=== PATIENT | female | born 1980 | race Two or more races ===

== ENCOUNTER 2018-07-26 11:06 | Inpatient (IN) | payer OTHER ==
[2018-07-26 11:47] LABS: BILIRUBIN,URINE MODERATE (NEG); CLARITY,URINE CLEAR; NITRITE,URINE NEGATIVE (NEG); PROTEIN,URINE 30 mg/dL (NEG-TRACE)
[2018-07-26 11:58] LABS: COLOR,URINE YELLOW
[2018-07-26 11:59] LABS: BACTERIA,URINE MANY /HPF (0-FEW); SQUAMOUS EPITHELIAL CELL,UR MANY /LPF
[2018-07-26 12:01] LABS: RBC,URINE OCC /HPF (0-2)
[2018-07-26] MEDS: IV RINGERS,LACTATED 1000ML 1,000 ML IV SCH ×2 (12:38→17:56)
[2018-07-26 12:48] LABS: BASO % 0 % (0-3); EOS # 0.1 x10^3/uL (0.0-0.7); EOS % 1 % (0-3); HEMATOCRIT 36.9 % (36.0-47.0); HEMOGLOBIN 13.2 g/dL (12.0-15.5); LYMPH # 0.9 x10^3/uL (1.0-4.8); LYMPH % 9 % (24-48); MEAN CORPUSCULAR HEMOGLOBIN 33 pg (25-35); MEAN CORPUSCULAR HGB CONC 36 g/dL (31-37); MEAN CORPUSCULAR VOLUME 93 fL (79-100); MONO # 0.6 x10^3/uL (0.0-1.1); MONO % 6 % (0-9); NEUT # 8.4 x10^3uL (1.8-7.7); NEUT % 84 % (31-73); PLATELET COUNT 349 x10^3/uL (140-400); RED BLOOD COUNT 3.97 x10^6/uL (3.50-5.40); RED CELL DISTRIBUTION WIDTH 13.1 % (11.5-14.5)
[2018-07-26 12:58] LABS: CREATININE 0.6 mg/dL (0.6-1.0); GFR 111.3; POTASSIUM 3.8 mmol/L (3.5-5.1)
[2018-07-26 13:04] LABS: ALBUMIN 2.6 g/dL (3.4-5.0); ALBUMIN/GLOBULIN RATIO 0.6 (1.0-1.7); TOTAL BILIRUBIN 1.2 mg/dL (0.2-1.0)
[2018-07-26] MEDS: HYDROcodone/APAP 5/325MG 1 TAB TABLET PO PRN ×2 (13:48→20:01)
--- NOTE | 2018-07-26 14:48 | RAD ---
OB ultrasound study greater than 14 weeks Clinical indications: Large for dates. FINDINGS: Single intrauterine fetus is seen in cephalic presentation. LMP is December 14, 2017 which corresponds to a gestational age of 32 weeks 0 days with an EDC of September 20, 2018. BPD is 8.22 cm which equals 33 weeks 0 days. Head circumference is 30.22 cm which equals 33 weeks 4 days. Abdominal circumference is 28.60 cm which equals 32 weeks 4 days. Femur length is 6.64 cm which equals 34 weeks 1 day. Therefore, the average gestational age by sonography is 33 weeks 2 days +/- 3 weeks with an EDC of September 11, 2018. Estimated weight is 4 pounds and 12 ounces. heart rate is 160 bpm. The anatomy was not evaluated. FRANCIS using the 4 quadrant method is 11.7. A grade 0 anterior placenta is seen and no placenta previa and no placenta abruptio is identified. Cervical length is 6.2 cm. IMPRESSION: Single IUP with gestational age of 33 weeks 2 days. Electronically signed by: Johnathan Gray MD (07/26/2018 2:45 PM) [facility]
--- NOTE | 2018-07-26 14:51 | RAD ---
Limited abdomen ultrasound study Clinical indications: Right upper quadrant abdominal pain. FINDINGS: The pancreas is homogeneous without focal enlargement. There is diffuse attenuation of sound throughout the liver which may be seen with fatty infiltration of the liver. This decreases the sensitivity of sonography to detect focal hepatic lesions. No focal hepatic mass is seen otherwise. The liver measures almost 14 cm in length. Multiple gallstones are seen within the gallbladder. No gallbladder distention or gallbladder wall thickening or pericholecystic free fluid is evident. The extra hepatic bile duct measures 7.4 mm in caliber which is mildly dilated. The length of the right kidney is 12.4 cm. No hydronephrosis or renal mass or perinephric fluid collection is seen on this side. IMPRESSION: Cholelithiasis. Extra hepatic bile duct measures 7.4 mm in caliber which is mildly dilated given the patient's younger age. Correlation with liver function tests is recommended. Fatty infiltration of the liver. Electronically signed by: Johnathan Gray MD (07/26/2018 2:48 PM) [facility]
--- NOTE | 2018-07-26 17:03 | PDOC2 ---
CONSULT Date of Consult Date of Consult DATE: 07/26/18 TIME: 16:59 Reason for Consult Reason for Consult: Gallstone pancreatitis Referring Physician Referring Physician: Gio Identification/Chief Complaint Chief Complaint epigastric abd pain Source Source: Chart review, Patient History of Present Illness Reason for Visit: 38 yo F 33 weeks with c/o epigastric abd pain. No previous episodes. Pain is now resolved. Past Medical History Cardiovascular: No pertinent hx Past Surgical History Past Surgical History: No pertinent history Family History Family History: No Significant Social History No ALCOHOL: rare Lives: with Family Current Medications Current Medications Current Medications Ringer's Solution 1,000 ml @ 125 mls/hr Q8H IV Last administered on 07/26/18at 12:38; Start 07/26/18 at 11:21 Acetaminophen/ Hydrocodone Bitart (Lortab 5/325) 1 tab PRN Q4HRS PRN PO PAIN; Start 07/26/18 at 13:15 Allergies Allergies: Coded Allergies: No Known Drug Allergies (Unverified , 07/26/18) ROS Gastrointestinal: Yes Abdominal Pain Physical Exam General: Alert, Oriented X3, Cooperative, No acute distress HEENT: Atraumatic Abdomen: Soft, No tenderness, Other (gravid) Extremities: No clubbing, No cyanosis Skin: No rashes, No breakdown Neuro: Normal speech, Sensation intact Psych/Mental Status: Mental status NL, Mood NL Labs Labs Laboratory Tests Test 07/26/18 11:40 07/26/18 12:35 Urine Collection Type Unknown Urine Color Yellow Urine Clarity Clear Urine pH 6.0 Urine Specific [place] 1.025 Urine Protein 30 mg/dL (NEG-TRACE) Urine Glucose (UA) Negative mg/dL (NEG) Urine Ketones (Stick) 15 mg/dL (NEG) Urine Blood Negative (NEG) Urine Nitrite Negative (NEG) Urine Bilirubin Moderate (NEG) Urine Urobilinogen Dipstick 2.0 mg/dL (0.2 mg/dL) Urine Leukocyte Esterase Large (NEG) Urine RBC Occ /HPF (0-2) Urine WBC 11-20 /HPF (0-4) Urine Squamous Epithelial Cells Many /LPF Urine Bacteria Many /HPF (0-FEW) Urine Mucus Marked /LPF White Blood Count 10.0 x10^3/uL (4.0-11.0) Red Blood Count 3.97 x10^6/uL (3.50-5.40) Hemoglobin 13.2 g/dL (12.0-15.5) Hematocrit 36.9 % (36.0-47.0) Mean Corpuscular Volume 93 fL (79-100) Mean Corpuscular Hemoglobin 33 pg (25-35) Mean Corpuscular Hemoglobin Concent 36 g/dL (31-37) Red Cell Distribution Width 13.1 % (11.5-14.5) Platelet Count 349 x10^3/uL (140-400) Neutrophils (%) (Auto) 84 % (31-73) Lymphocytes (%) (Auto) 9 % (24-48) Monocytes (%) (Auto) 6 % (0-9) Eosinophils (%) (Auto) 1 % (0-3) Basophils (%) (Auto) 0 % (0-3) Neutrophils # (Auto) 8.4 x10^3uL (1.8-7.7) Lymphocytes # (Auto) 0.9 x10^3/uL (1.0-4.8) Monocytes # (Auto) 0.6 x10^3/uL (0.0-1.1) Eosinophils # (Auto) 0.1 x10^3/uL (0.0-0.7) Basophils # (Auto) 0.0 x10^3/uL (0.0-0.2) Sodium Level 134 mmol/L (136-145) Potassium Level 3.8 mmol/L (3.5-5.1) Chloride Level 100 mmol/L (98-107) Carbon Dioxide Level 22 mmol/L (21-32) Anion Gap 12 (6-14) Blood Urea Nitrogen 8 mg/dL (7-20) Creatinine 0.6 mg/dL (0.6-1.0) Estimated GFR (Cockcroft-Gault) 111.3 BUN/Creatinine Ratio 13 (6-20) Glucose Level 92 mg/dL (70-99) Calcium Level 9.0 mg/dL (8.5-10.1) Total Bilirubin 1.2 mg/dL (0.2-1.0) Aspartate Amino Transf (AST/SGOT) 191 U/L (15-37) Alanine Aminotransferase (ALT/SGPT) 158 U/L (14-59) Alkaline Phosphatase 152 U/L (46-116) Total Protein 7.0 g/dL (6.4-8.2) Albumin 2.6 g/dL (3.4-5.0) Albumin/Globulin Ratio 0.6 (1.0-1.7) Amylase Level 246 U/L (25-115) Lipase 3387 U/L (73-393) Laboratory Tests Test 07/26/18 11:40 07/26/18 12:35 Urine Collection Type Unknown Urine Color Yellow Urine Clarity Clear Urine pH 6.0 Urine Specific [place] 1.025 Urine Protein 30 mg/dL (NEG-TRACE) Urine Glucose (UA) Negative mg/dL (NEG) Urine Ketones (Stick) 15 mg/dL (NEG) Urine Blood Negative (NEG) Urine Nitrite Negative (NEG) Urine Bilirubin Moderate (NEG) Urine Urobilinogen Dipstick 2.0 mg/dL (0.2 mg/dL) Urine Leukocyte Esterase Large (NEG) Urine RBC Occ /HPF (0-2) Urine WBC 11-20 /HPF (0-4) Urine Squamous Epithelial Cells Many /LPF Urine Bacteria Many /HPF (0-FEW) Urine Mucus Marked /LPF White Blood Count 10.0 x10^3/uL (4.0-11.0) Red Blood Count 3.97 x10^6/uL (3.50-5.40) Hemoglobin 13.2 g/dL (12.0-15.5) Hematocrit 36.9 % (36.0-47.0) Mean Corpuscular Volume 93 fL (79-100) Mean Corpuscular Hemoglobin 33 pg (25-35) Mean Corpuscular Hemoglobin Concent 36 g/dL (31-37) Red Cell Distribution Width 13.1 % (11.5-14.5) Platelet Count 349 x10^3/uL (140-400) Neutrophils (%) (Auto) 84 % (31-73) Lymphocytes (%) (Auto) 9 % (24-48) Monocytes (%) (Auto) 6 % (0-9) Eosinophils (%) (Auto) 1 % (0-3) Basophils (%) (Auto) 0 % (0-3) Neutrophils # (Auto) 8.4 x10^3uL (1.8-7.7) Lymphocytes # (Auto) 0.9 x10^3/uL (1.0-4.8) Monocytes # (Auto) 0.6 x10^3/uL (0.0-1.1) Eosinophils # (Auto) 0.1 x10^3/uL (0.0-0.7) Basophils # (Auto) 0.0 x10^3/uL (0.0-0.2) Sodium Level 134 mmol/L (136-145) Potassium Level 3.8 mmol/L (3.5-5.1) Chloride Level 100 mmol/L (98-107) Carbon Dioxide Level 22 mmol/L (21-32) Anion Gap 12 (6-14) Blood Urea Nitrogen 8 mg/dL (7-20) Creatinine 0.6 mg/dL (0.6-1.0) Estimated GFR (Cockcroft-Gault) 111.3 BUN/Creatinine Ratio 13 (6-20) Glucose Level 92 mg/dL (70-99) Calcium Level 9.0 mg/dL (8.5-10.1) Total Bilirubin 1.2 mg/dL (0.2-1.0) Aspartate Amino Transf (AST/SGOT) 191 U/L (15-37) Alanine Aminotransferase (ALT/SGPT) 158 U/L (14-59) Alkaline Phosphatase 152 U/L (46-116) Total Protein 7.0 g/dL (6.4-8.2) Albumin 2.6 g/dL (3.4-5.0) Albumin/Globulin Ratio 0.6 (1.0-1.7) Amylase Level 246 U/L (25-115) Lipase 3387 U/L (73-393) Images Images US with gallstones and mildly dilated duct, normal Assessment/Plan Assessment/Plan gallstone pancreatitis while favor bowel rest and observation. Seems to have resolved quickly. Would attempt to avoid surgery until after d/w pt, pt's family and Dr. Powers Thanks for consult! CHARLES JOHNSON MD Jul 26, 2018 17:03
[2018-07-27 05:44] LABS: BASO % 0 % (0-3); EOS # 0.1 x10^3/uL (0.0-0.7); EOS % 2 % (0-3); HEMATOCRIT 34.1 % (36.0-47.0); HEMOGLOBIN 11.8 g/dL (12.0-15.5); LYMPH # 1.6 x10^3/uL (1.0-4.8); LYMPH % 23 % (24-48); MEAN CORPUSCULAR HEMOGLOBIN 33 pg (25-35); MEAN CORPUSCULAR HGB CONC 35 g/dL (31-37); MEAN CORPUSCULAR VOLUME 94 fL (79-100); MONO # 0.4 x10^3/uL (0.0-1.1); MONO % 6 % (0-9); NEUT # 4.9 x10^3uL (1.8-7.7); NEUT % 69 % (31-73); PLATELET COUNT 329 x10^3/uL (140-400); RED BLOOD COUNT 3.64 x10^6/uL (3.50-5.40); RED CELL DISTRIBUTION WIDTH 13.4 % (11.5-14.5)
[2018-07-27 06:16] LABS: ALBUMIN 2.3 g/dL (3.4-5.0); ALBUMIN/GLOBULIN RATIO 0.7 (1.0-1.7); CALCIUM 8.3 mg/dL (8.5-10.1); CREATININE 0.6 mg/dL (0.6-1.0); GFR 111.3; POTASSIUM 3.8 mmol/L (3.5-5.1); TOTAL BILIRUBIN 0.6 mg/dL (0.2-1.0); TOTAL PROTEIN 5.7 g/dL (6.4-8.2)
[2018-07-27] MEDS: IV RINGERS,LACTATED 1000ML 1,000 ML IV SCH (07:35)
[2018-07-27 07:37] VITALS: BP 115/62
--- NOTE | 2018-07-27 07:47 | PDOC1 ---
OB - History Hx of Present Care: Good Care Ultrasounds: Normal mid trimester US, Abnormal US findings (Cholestasis) Past Family/Social History * Past Medical, Surgical, Family and Obstetric Histories reviewed from chart. Rubella: Immune RPR/VDRL: Negative GBS Status: Unknown HBsAG: Negative OB - Chief Complaint & HPI Date of Admission: Date of Admission: Jul 26, 2018 at 11:06 Chief Complaint/History : 2 Para: 1 EDC: Sep 20, 2018 Reason for admission: observation Admission Nurse Assessment Rev: Yes OB - Admission Exam Physical Exam Vitals: VS - Last 72 Hours, by Label Date Time Temp Pulse Resp B/P (MAP) Pulse Ox O2 Delivery O2 Flow Rate FiO2 07/26/18 20:01 18 Room Air HEENT: Normal, Nasal Mucosa Normal, Oropharynx Normal, Moist Membranes, [place] Normal Heart: Regular Rate Lungs: Clear, Equal Abdomen: Gravid Extremities: Normal Pulses, No tenderness or swelling Reflexes: Normal Cervical Dilatation: None Effacement: 0% Station: Ballotable Membranes: Intact Heart Rate: Normal Assessment/Plan Assessment/Plan 32 weeks GB pancreatitis GS consult KARSON MCDONNELL MD Jul 27, 2018 07:47
--- NOTE | 2018-07-27 08:39 | PDOC ---
SURGICAL PROGRESS NOTE Subjective Pt feels better, min pain last night, but none today, positive hunger Vital Signs Vital Signs Date Time Temp Pulse Resp B/P (MAP) Pulse Ox O2 Delivery O2 Flow Rate FiO2 07/27/18 07:37 97.8 63 16 115/62 (79) 97 Room Air 97.8 General: Alert, Oriented X3, Cooperative, No acute distress Abdomen: Soft, No tenderness Labs Laboratory Tests Test 07/26/18 11:40 07/26/18 12:35 07/27/18 04:42 Urine Collection Type Unknown Urine Color Yellow Urine Clarity Clear Urine pH 6.0 Urine Specific [place] 1.025 Urine Protein 30 mg/dL (NEG-TRACE) Urine Glucose (UA) Negative mg/dL (NEG) Urine Ketones (Stick) 15 mg/dL (NEG) Urine Blood Negative (NEG) Urine Nitrite Negative (NEG) Urine Bilirubin Moderate (NEG) Urine Urobilinogen Dipstick 2.0 mg/dL (0.2 mg/dL) Urine Leukocyte Esterase Large (NEG) Urine RBC Occ /HPF (0-2) Urine WBC 11-20 /HPF (0-4) Urine Squamous Epithelial Cells Many /LPF Urine Bacteria Many /HPF (0-FEW) Urine Mucus Marked /LPF White Blood Count 10.0 x10^3/uL (4.0-11.0) 7.0 x10^3/uL (4.0-11.0) Red Blood Count 3.97 x10^6/uL (3.50-5.40) 3.64 x10^6/uL (3.50-5.40) Hemoglobin 13.2 g/dL (12.0-15.5) 11.8 g/dL (12.0-15.5) Hematocrit 36.9 % (36.0-47.0) 34.1 % (36.0-47.0) Mean Corpuscular Volume 93 fL (79-100) 94 fL (79-100) Mean Corpuscular Hemoglobin 33 pg (25-35) 33 pg (25-35) Mean Corpuscular Hemoglobin Concent 36 g/dL (31-37) 35 g/dL (31-37) Red Cell Distribution Width 13.1 % (11.5-14.5) 13.4 % (11.5-14.5) Platelet Count 349 x10^3/uL (140-400) 329 x10^3/uL (140-400) Neutrophils (%) (Auto) 84 % (31-73) 69 % (31-73) Lymphocytes (%) (Auto) 9 % (24-48) 23 % (24-48) Monocytes (%) (Auto) 6 % (0-9) 6 % (0-9) Eosinophils (%) (Auto) 1 % (0-3) 2 % (0-3) Basophils (%) (Auto) 0 % (0-3) 0 % (0-3) Neutrophils # (Auto) 8.4 x10^3uL (1.8-7.7) 4.9 x10^3uL (1.8-7.7) Lymphocytes # (Auto) 0.9 x10^3/uL (1.0-4.8) 1.6 x10^3/uL (1.0-4.8) Monocytes # (Auto) 0.6 x10^3/uL (0.0-1.1) 0.4 x10^3/uL (0.0-1.1) Eosinophils # (Auto) 0.1 x10^3/uL (0.0-0.7) 0.1 x10^3/uL (0.0-0.7) Basophils # (Auto) 0.0 x10^3/uL (0.0-0.2) 0.0 x10^3/uL (0.0-0.2) Sodium Level 134 mmol/L (136-145) 136 mmol/L (136-145) Potassium Level 3.8 mmol/L (3.5-5.1) 3.8 mmol/L (3.5-5.1) Chloride Level 100 mmol/L (98-107) 105 mmol/L (98-107) Carbon Dioxide Level 22 mmol/L (21-32) 19 mmol/L (21-32) Anion Gap 12 (6-14) 12 (6-14) Blood Urea Nitrogen 8 mg/dL (7-20) 7 mg/dL (7-20) Creatinine 0.6 mg/dL (0.6-1.0) 0.6 mg/dL (0.6-1.0) Estimated GFR (Cockcroft-Gault) 111.3 111.3 BUN/Creatinine Ratio 13 (6-20) 12 (6-20) Glucose Level 92 mg/dL (70-99) 71 mg/dL (70-99) Calcium Level 9.0 mg/dL (8.5-10.1) 8.3 mg/dL (8.5-10.1) Total Bilirubin 1.2 mg/dL (0.2-1.0) 0.6 mg/dL (0.2-1.0) Aspartate Amino Transf (AST/SGOT) 191 U/L (15-37) 144 U/L (15-37) Alanine Aminotransferase (ALT/SGPT) 158 U/L (14-59) 151 U/L (14-59) Alkaline Phosphatase 152 U/L (46-116) 149 U/L (46-116) Total Protein 7.0 g/dL (6.4-8.2) 5.7 g/dL (6.4-8.2) Albumin 2.6 g/dL (3.4-5.0) 2.3 g/dL (3.4-5.0) Albumin/Globulin Ratio 0.6 (1.0-1.7) 0.7 (1.0-1.7) Amylase Level 246 U/L (25-115) 103 U/L (25-115) Lipase 3387 U/L (73-393) 540 U/L (73-393) Laboratory Tests Test 07/26/18 11:40 07/26/18 12:35 07/27/18 04:42 Urine Collection Type Unknown Urine Color Yellow Urine Clarity Clear Urine pH 6.0 Urine Specific [place] 1.025 Urine Protein 30 mg/dL (NEG-TRACE) Urine Glucose (UA) Negative mg/dL (NEG) Urine Ketones (Stick) 15 mg/dL (NEG) Urine Blood Negative (NEG) Urine Nitrite Negative (NEG) Urine Bilirubin Moderate (NEG) Urine Urobilinogen Dipstick 2.0 mg/dL (0.2 mg/dL) Urine Leukocyte Esterase Large (NEG) Urine RBC Occ /HPF (0-2) Urine WBC 11-20 /HPF (0-4) Urine Squamous Epithelial Cells Many /LPF Urine Bacteria Many /HPF (0-FEW) Urine Mucus Marked /LPF White Blood Count 10.0 x10^3/uL (4.0-11.0) 7.0 x10^3/uL (4.0-11.0) Red Blood Count 3.97 x10^6/uL (3.50-5.40) 3.64 x10^6/uL (3.50-5.40) Hemoglobin 13.2 g/dL (12.0-15.5) 11.8 g/dL (12.0-15.5) Hematocrit 36.9 % (36.0-47.0) 34.1 % (36.0-47.0) Mean Corpuscular Volume 93 fL (79-100) 94 fL (79-100) Mean Corpuscular Hemoglobin 33 pg (25-35) 33 pg (25-35) Mean Corpuscular Hemoglobin Concent 36 g/dL (31-37) 35 g/dL (31-37) Red Cell Distribution Width 13.1 % (11.5-14.5) 13.4 % (11.5-14.5) Platelet Count 349 x10^3/uL (140-400) 329 x10^3/uL (140-400) Neutrophils (%) (Auto) 84 % (31-73) 69 % (31-73) Lymphocytes (%) (Auto) 9 % (24-48) 23 % (24-48) Monocytes (%) (Auto) 6 % (0-9) 6 % (0-9) Eosinophils (%) (Auto) 1 % (0-3) 2 % (0-3) Basophils (%) (Auto) 0 % (0-3) 0 % (0-3) Neutrophils # (Auto) 8.4 x10^3uL (1.8-7.7) 4.9 x10^3uL (1.8-7.7) Lymphocytes # (Auto) 0.9 x10^3/uL (1.0-4.8) 1.6 x10^3/uL (1.0-4.8) Monocytes # (Auto) 0.6 x10^3/uL (0.0-1.1) 0.4 x10^3/uL (0.0-1.1) Eosinophils # (Auto) 0.1 x10^3/uL (0.0-0.7) 0.1 x10^3/uL (0.0-0.7) Basophils # (Auto) 0.0 x10^3/uL (0.0-0.2) 0.0 x10^3/uL (0.0-0.2) Sodium Level 134 mmol/L (136-145) 136 mmol/L (136-145) Potassium Level 3.8 mmol/L (3.5-5.1) 3.8 mmol/L (3.5-5.1) Chloride Level 100 mmol/L (98-107) 105 mmol/L (98-107) Carbon Dioxide Level 22 mmol/L (21-32) 19 mmol/L (21-32) Anion Gap 12 (6-14) 12 (6-14) Blood Urea Nitrogen 8 mg/dL (7-20) 7 mg/dL (7-20) Creatinine 0.6 mg/dL (0.6-1.0) 0.6 mg/dL (0.6-1.0) Estimated GFR (Cockcroft-Gault) 111.3 111.3 BUN/Creatinine Ratio 13 (6-20) 12 (6-20) Glucose Level 92 mg/dL (70-99) 71 mg/dL (70-99) Calcium Level 9.0 mg/dL (8.5-10.1) 8.3 mg/dL (8.5-10.1) Total Bilirubin 1.2 mg/dL (0.2-1.0) 0.6 mg/dL (0.2-1.0) Aspartate Amino Transf (AST/SGOT) 191 U/L (15-37) 144 U/L (15-37) Alanine Aminotransferase (ALT/SGPT) 158 U/L (14-59) 151 U/L (14-59) Alkaline Phosphatase 152 U/L (46-116) 149 U/L (46-116) Total Protein 7.0 g/dL (6.4-8.2) 5.7 g/dL (6.4-8.2) Albumin 2.6 g/dL (3.4-5.0) 2.3 g/dL (3.4-5.0) Albumin/Globulin Ratio 0.6 (1.0-1.7) 0.7 (1.0-1.7) Amylase Level 246 U/L (25-115) 103 U/L (25-115) Lipase 3387 U/L (73-393) 540 U/L (73-393) Problem List gallstone pancreatitis start clears d/w Dr. Powers, plan d/c home in AM CHARLES JOHNSON MD Jul 27, 2018 08:39
--- NOTE | 2018-07-28 07:46 | PDOC ---
OB Progress Note Date of Service 07/28/18 Time of Evaluation 0745 Notes Pt. feeling better. No abd pain this am. Pt. also denies any contractions, LOF , VB or decreased FM. Lab Laboratory Tests Test 07/26/18 11:40 07/26/18 12:35 07/27/18 04:42 Urine Collection Type Unknown Urine Color Yellow Urine Clarity Clear Urine pH 6.0 Urine Specific [place] 1.025 Urine Protein 30 mg/dL (NEG-TRACE) Urine Glucose (UA) Negative mg/dL (NEG) Urine Ketones (Stick) 15 mg/dL (NEG) Urine Blood Negative (NEG) Urine Nitrite Negative (NEG) Urine Bilirubin Moderate (NEG) Urine Urobilinogen Dipstick 2.0 mg/dL (0.2 mg/dL) Urine Leukocyte Esterase Large (NEG) Urine RBC Occ /HPF (0-2) Urine WBC 11-20 /HPF (0-4) Urine Squamous Epithelial Cells Many /LPF Urine Bacteria Many /HPF (0-FEW) Urine Mucus Marked /LPF White Blood Count 10.0 x10^3/uL (4.0-11.0) 7.0 x10^3/uL (4.0-11.0) Red Blood Count 3.97 x10^6/uL (3.50-5.40) 3.64 x10^6/uL (3.50-5.40) Hemoglobin 13.2 g/dL (12.0-15.5) 11.8 g/dL (12.0-15.5) Hematocrit 36.9 % (36.0-47.0) 34.1 % (36.0-47.0) Mean Corpuscular Volume 93 fL (79-100) 94 fL (79-100) Mean Corpuscular Hemoglobin 33 pg (25-35) 33 pg (25-35) Mean Corpuscular Hemoglobin Concent 36 g/dL (31-37) 35 g/dL (31-37) Red Cell Distribution Width 13.1 % (11.5-14.5) 13.4 % (11.5-14.5) Platelet Count 349 x10^3/uL (140-400) 329 x10^3/uL (140-400) Neutrophils (%) (Auto) 84 % (31-73) 69 % (31-73) Lymphocytes (%) (Auto) 9 % (24-48) 23 % (24-48) Monocytes (%) (Auto) 6 % (0-9) 6 % (0-9) Eosinophils (%) (Auto) 1 % (0-3) 2 % (0-3) Basophils (%) (Auto) 0 % (0-3) 0 % (0-3) Neutrophils # (Auto) 8.4 x10^3uL (1.8-7.7) 4.9 x10^3uL (1.8-7.7) Lymphocytes # (Auto) 0.9 x10^3/uL (1.0-4.8) 1.6 x10^3/uL (1.0-4.8) Monocytes # (Auto) 0.6 x10^3/uL (0.0-1.1) 0.4 x10^3/uL (0.0-1.1) Eosinophils # (Auto) 0.1 x10^3/uL (0.0-0.7) 0.1 x10^3/uL (0.0-0.7) Basophils # (Auto) 0.0 x10^3/uL (0.0-0.2) 0.0 x10^3/uL (0.0-0.2) Sodium Level 134 mmol/L (136-145) 136 mmol/L (136-145) Potassium Level 3.8 mmol/L (3.5-5.1) 3.8 mmol/L (3.5-5.1) Chloride Level 100 mmol/L (98-107) 105 mmol/L (98-107) Carbon Dioxide Level 22 mmol/L (21-32) 19 mmol/L (21-32) Anion Gap 12 (6-14) 12 (6-14) Blood Urea Nitrogen 8 mg/dL (7-20) 7 mg/dL (7-20) Creatinine 0.6 mg/dL (0.6-1.0) 0.6 mg/dL (0.6-1.0) Estimated GFR (Cockcroft-Gault) 111.3 111.3 BUN/Creatinine Ratio 13 (6-20) 12 (6-20) Glucose Level 92 mg/dL (70-99) 71 mg/dL (70-99) Calcium Level 9.0 mg/dL (8.5-10.1) 8.3 mg/dL (8.5-10.1) Total Bilirubin 1.2 mg/dL (0.2-1.0) 0.6 mg/dL (0.2-1.0) Aspartate Amino Transf (AST/SGOT) 191 U/L (15-37) 144 U/L (15-37) Alanine Aminotransferase (ALT/SGPT) 158 U/L (14-59) 151 U/L (14-59) Alkaline Phosphatase 152 U/L (46-116) 149 U/L (46-116) Total Protein 7.0 g/dL (6.4-8.2) 5.7 g/dL (6.4-8.2) Albumin 2.6 g/dL (3.4-5.0) 2.3 g/dL (3.4-5.0) Albumin/Globulin Ratio 0.6 (1.0-1.7) 0.7 (1.0-1.7) Amylase Level 246 U/L (25-115) 103 U/L (25-115) Lipase 3387 U/L (73-393) 540 U/L (73-393) Medications Current Medications Ringer's Solution 1,000 ml @ 125 mls/hr Q8H IV Last administered on 07/27/18at 07:35; Start 07/26/18 at 11:21 Acetaminophen/ Hydrocodone Bitart (Lortab 5/325) 1 tab PRN Q4HRS PRN PO PAIN Last administered on 07/26/18at 20:01; Start 07/26/18 at 13:15 Exam Abd: soft, non tender, gravid uterus NST category 1 No contractions. Assessment 32 wks IUP Cholelithiasis Plan of Care: See new orders (If labs remain normal, consider d/c home.) VANESSA COOPER Jr, MD Jul 28, 2018 07:46
[2018-07-28 08:31] LABS: BASO % 0 % (0-3); EOS # 0.1 x10^3/uL (0.0-0.7); EOS % 2 % (0-3); HEMATOCRIT 34.9 % (36.0-47.0); HEMOGLOBIN 12.5 g/dL (12.0-15.5); LYMPH # 1.3 x10^3/uL (1.0-4.8); LYMPH % 19 % (24-48); MEAN CORPUSCULAR HEMOGLOBIN 33 pg (25-35); MEAN CORPUSCULAR HGB CONC 36 g/dL (31-37); MEAN CORPUSCULAR VOLUME 93 fL (79-100); MONO # 0.5 x10^3/uL (0.0-1.1); MONO % 7 % (0-9); NEUT % 72 % (31-73); PLATELET COUNT 339 x10^3/uL (140-400); RED BLOOD COUNT 3.75 x10^6/uL (3.50-5.40); RED CELL DISTRIBUTION WIDTH 13.2 % (11.5-14.5); WHITE BLOOD COUNT 6.9 x10^3/uL (4.0-11.0)
[2018-07-28 09:00] LABS: ALBUMIN 2.4 g/dL (3.4-5.0); ALBUMIN/GLOBULIN RATIO 0.6 (1.0-1.7); CALCIUM 8.4 mg/dL (8.5-10.1); CREATININE 0.6 mg/dL (0.6-1.0); GFR 111.3; POTASSIUM 3.5 mmol/L (3.5-5.1); TOTAL BILIRUBIN 0.3 mg/dL (0.2-1.0); TOTAL PROTEIN 6.2 g/dL (6.4-8.2)
== END 2018-07-28 10:15 | disposition home or self-care (01) | DRG 781 ==
LOC: 3 SO LND 11:06 → OBSVTOIN 07-27 13:54
PROVIDERS: ADMIT Specialist; ATTEND Specialist
DX: O26.613 Liver and biliary tract disorders in pregnancy, third trimester (principal); K85.10 Biliary acute pancreatitis without necrosis or infection; Z3A.33 33 weeks gestation of pregnancy; K80.20 Calculus of gallbladder without cholecystitis without obstruction
CPT/HCPCS: 36415; 76705; 76805; 80053; 81001; 82150; 83690; 85025; 87086; G0378; G0379; J7120

== ENCOUNTER 2018-09-09 10:37 | Inpatient (IN) | payer OTHER ==
[~2018-09-09] VITALS: Ht 157.5 cm; Wt 88.0 kg
[2018-09-09] MEDS ORDERED: IBUPROFEN 400 MG TABLET. PO PRN ×2 (13:15→16:30)
[2018-09-09] MEDS ORDERED: BUTORPHANOL 2 MG/ML VIAL. IV PRN ×2 (13:15)
[2018-09-09] MEDS ORDERED: 0.9 % SODIUM CHLORIDE 10 ML DISP.SYRIN. IV PRN ×2 (13:15→16:30)
[2018-09-09] MEDS ORDERED: fentaNYL PF VIAL 100 MCG/2 ML VIAL IV PRN (13:15)
[2018-09-09] MEDS ORDERED: LIDOCAINE 1% PF 30 ML VIAL. INJ PRN (13:15)
[2018-09-09] MEDS ORDERED: IV RINGERS,LACTATED 1000ML 1,000 ML IV SCH (13:15)
[2018-09-09] MEDS ORDERED: OXYTOCIN 30 UNIT/500 ML PREMIX 500 ML IV PRN ×3 (13:15→16:30)
[2018-09-09] MEDS ORDERED: TERBUTALINE 1 MG/ML VIAL. SQ PRN (13:15)
[2018-09-09 13:18] VITALS: BP 130/76
--- NOTE | 2018-09-09 13:58 | PDOC1 ---
OB - History Hx of Present Care: Good Care Ultrasounds: Normal mid trimester US Obstetrical Complications: None Medical Complications: None Past Family/Social History * Past Medical, Surgical, Family and Obstetric Histories reviewed from chart. Rubella: Immune RPR/VDRL: Negative GBS Status: Negative HBsAG: Negative OB - Chief Complaint & HPI Date of Admission: Date of Admission: Sep 09, 2018 at 10:37 Chief Complaint/History : 3 Para: 2 EGA: 38 Reason for admission: active labor Admission Nurse Assessment Rev: Yes OB - Admission Exam Physical Exam Vitals: VS - Last 72 Hours, by Label Date Time Temp Pulse Resp B/P (MAP) Pulse Ox O2 Delivery O2 Flow Rate FiO2 09/09/18 13:18 97.9 72 18 130/76 (94) Room Air 97.9 HEENT: Normal Heart: Regular Rate Lungs: Clear, Equal Abdomen: Gravid, Non tender, Soft Extremities: Edema Reflexes: Normal Cervical Dilatation: 2cm Effacement: 75% Station: -3 Membranes: Intact Heart Rate: Normal Accelerations: Accelerations Present Decelerations: No decelerations Contractions on Admission: 6-10 Minutes Apart Intensity: Mild Text A: 38 wks IUP Active labor P: Admit for labor management. VANESSA COOPER Jr, MD Sep 09, 2018 13:58
[2018-09-09 15:55] LABS: BASO % 0 % (0-3); EOS % 0 % (0-3); HEMATOCRIT 36.6 % (36.0-47.0); LYMPH # 1.8 x10^3/uL (1.0-4.8); LYMPH % 19 % (24-48); MEAN CORPUSCULAR HEMOGLOBIN 33 pg (25-35); MEAN CORPUSCULAR HGB CONC 35 g/dL (31-37); MEAN CORPUSCULAR VOLUME 93 fL (79-100); MONO # 0.4 x10^3/uL (0.0-1.1); MONO % 5 % (0-9); NEUT # 6.8 x10^3uL (1.8-7.7); NEUT % 75 % (31-73); PLATELET COUNT 249 x10^3/uL (140-400); RED BLOOD COUNT 3.92 x10^6/uL (3.50-5.40); RED CELL DISTRIBUTION WIDTH 14.5 % (11.5-14.5); WHITE BLOOD COUNT 9.1 x10^3/uL (4.0-11.0)
--- NOTE | 2018-09-09 16:23 | PDOC ---
VAGINAL DELIVERY DATE DATE: 09/09/18 TIME: 16:21 : 3 Para: 3 EGA: 38 VAGINAL DELIVERY: VTX VACCUM ASSISTED: No PLACENTA: Spontaneous 8/9 SEX: Female WEIGHT Weight [ 6 lbs. 15 oz] Nuchal Cord: Yes, Times 1 Amniotic Fluid: Clear PAIN: Natural EPISIOTOMY: No EXTENSION: Yes (1st degree midline laceration) REPAIRED WITH 2-0 vicryl EBL 300 ml COMPLICATIONS none CONDITION pt. stable. with Left cleft lip Signs of Intrauterine Infectio: None Shoulder Dystocia: No VANESSA COOPER Jr, MD Sep 09, 2018 16:23
[2018-09-09] MEDS ORDERED: MAG HYDROX/ALUMINUM HYD/SIMETH 30 ML ORAL.SUSP PO PRN (16:30)
[2018-09-09] MEDS ORDERED: HYDROCORTISONE 1% TOPICAL OINTMENT 30GM TUBE. TP PRN (16:30)
[2018-09-09] MEDS ORDERED: MAGNESIUM HYDROXIDE 2,400 MG/30 ML ORAL.SUSP. PO PRN (16:30)
[2018-09-09] MEDS ORDERED: SIMETHICONE 80 MG TAB.CHEW PO PRN (16:30)
[2018-09-09] MEDS ORDERED: ACETAMINOPHEN 325 MG TABLET. PO PRN (16:30)
[2018-09-09] MEDS ORDERED: PHENYLEPH/MINERAL OIL/PETROLAT RECTAL OINTMENT 28GM TUBE. RC PRN (16:30)
[2018-09-09] MEDS ORDERED: MMR per PROTOCOL. MC PRN (16:30)
[2018-09-09] MEDS ORDERED: ZOLPIDEM 5 MG TABLET. PO PRN (16:30)
[2018-09-09] MEDS ORDERED: diphenhydrAMINE HCL 25 MG CAPSULE PO PRN (16:30)
[2018-09-09] MEDS ORDERED: DOCUSATE SODIUM 100 MG CAPSULE. PO PRN (16:30)
[2018-09-09] MEDS ORDERED: oxyCODONE/APAP 5/325 1 TAB TABLET PO PRN (16:30)
[2018-09-09] MEDS ORDERED: BENZOCAINE 20% TOPICAL AEROSOL SPRAY 57GM CAN. TP PRN (16:30)
[2018-09-09 20:05] VITALS: BP 123/67
[2018-09-09 21:45] VITALS: BP 108/56
[2018-09-09] MEDS ORDERED: INFLUENZA VAX SCREEN BY RX. MC PRN (23:45)
[2018-09-10 04:39] LABS: BASO % 0 % (0-3); EOS # 0.1 x10^3/uL (0.0-0.7); EOS % 1 % (0-3); HEMATOCRIT 34.6 % (36.0-47.0); HEMOGLOBIN 12.3 g/dL (12.0-15.5); LYMPH % 19 % (24-48); MEAN CORPUSCULAR HEMOGLOBIN 33 pg (25-35); MEAN CORPUSCULAR HGB CONC 35 g/dL (31-37); MEAN CORPUSCULAR VOLUME 94 fL (79-100); MONO # 0.6 x10^3/uL (0.0-1.1); MONO % 6 % (0-9); NEUT # 7.9 x10^3uL (1.8-7.7); NEUT % 74 % (31-73); PLATELET COUNT 220 x10^3/uL (140-400); RED BLOOD COUNT 3.67 x10^6/uL (3.50-5.40); RED CELL DISTRIBUTION WIDTH 14.8 % (11.5-14.5); WHITE BLOOD COUNT 10.7 x10^3/uL (4.0-11.0)
[2018-09-10 06:28] VITALS: BP 110/63
[2018-09-10] MEDS ORDERED: FERROUS SULFATE 325 MG TABLET. PO SCH (08:00)
[2018-09-10] MEDS ORDERED: DIPHTH,PERTUSS(ACELL),TET TOX 0.5 ML DISP.SYRIN. VAX IM ONE (09:00)
[2018-09-10 12:20] VITALS: BP 115/74
--- NOTE | 2018-09-10 15:46 | PDOC ---
OB Progress Note Date of Service 09/10/18 Time of Evaluation 1545 Notes PT. feeling well. No complaints. Lab Laboratory Tests Test 09/09/18 15:40 09/10/18 03:00 White Blood Count 9.1 x10^3/uL (4.0-11.0) 10.7 x10^3/uL (4.0-11.0) Red Blood Count 3.92 x10^6/uL (3.50-5.40) 3.67 x10^6/uL (3.50-5.40) Hemoglobin 13.0 g/dL (12.0-15.5) 12.3 g/dL (12.0-15.5) Hematocrit 36.6 % (36.0-47.0) 34.6 % (36.0-47.0) Mean Corpuscular Volume 93 fL (79-100) 94 fL (79-100) Mean Corpuscular Hemoglobin 33 pg (25-35) 33 pg (25-35) Mean Corpuscular Hemoglobin Concent 35 g/dL (31-37) 35 g/dL (31-37) Red Cell Distribution Width 14.5 % (11.5-14.5) 14.8 % (11.5-14.5) Platelet Count 249 x10^3/uL (140-400) 220 x10^3/uL (140-400) Neutrophils (%) (Auto) 75 % (31-73) 74 % (31-73) Lymphocytes (%) (Auto) 19 % (24-48) 19 % (24-48) Monocytes (%) (Auto) 5 % (0-9) 6 % (0-9) Eosinophils (%) (Auto) 0 % (0-3) 1 % (0-3) Basophils (%) (Auto) 0 % (0-3) 0 % (0-3) Neutrophils # (Auto) 6.8 x10^3uL (1.8-7.7) 7.9 x10^3uL (1.8-7.7) Lymphocytes # (Auto) 1.8 x10^3/uL (1.0-4.8) 2.0 x10^3/uL (1.0-4.8) Monocytes # (Auto) 0.4 x10^3/uL (0.0-1.1) 0.6 x10^3/uL (0.0-1.1) Eosinophils # (Auto) 0.0 x10^3/uL (0.0-0.7) 0.1 x10^3/uL (0.0-0.7) Basophils # (Auto) 0.0 x10^3/uL (0.0-0.2) 0.0 x10^3/uL (0.0-0.2) Treponema pallidum Antibody Nonreactive (Nonreactive) Laboratory Tests Test 09/10/18 03:00 White Blood Count 10.7 x10^3/uL (4.0-11.0) Red Blood Count 3.67 x10^6/uL (3.50-5.40) Hemoglobin 12.3 g/dL (12.0-15.5) Hematocrit 34.6 % (36.0-47.0) Mean Corpuscular Volume 94 fL (79-100) Mean Corpuscular Hemoglobin 33 pg (25-35) Mean Corpuscular Hemoglobin Concent 35 g/dL (31-37) Red Cell Distribution Width 14.8 % (11.5-14.5) Platelet Count 220 x10^3/uL (140-400) Neutrophils (%) (Auto) 74 % (31-73) Lymphocytes (%) (Auto) 19 % (24-48) Monocytes (%) (Auto) 6 % (0-9) Eosinophils (%) (Auto) 1 % (0-3) Basophils (%) (Auto) 0 % (0-3) Neutrophils # (Auto) 7.9 x10^3uL (1.8-7.7) Lymphocytes # (Auto) 2.0 x10^3/uL (1.0-4.8) Monocytes # (Auto) 0.6 x10^3/uL (0.0-1.1) Eosinophils # (Auto) 0.1 x10^3/uL (0.0-0.7) Basophils # (Auto) 0.0 x10^3/uL (0.0-0.2) Medications Current Medications Sodium Chloride (Normal Saline Flush) 3 ml QSHIFT PRN IV AFTER MEDS AND BLOOD DRAWS; Start 09/09/18 at 13:15 Ringer's Solution 1,000 ml @ 125 mls/hr Q8H IV Last administered on at 15:29; Start 09/09/18 at 13:15 Butorphanol Tartrate (Stadol) 1 mg PRN Q1HR PRN IV mild to moderate labor pain ; Start 09/09/18 at 13:15 Butorphanol Tartrate (Stadol) 2 mg PRN Q1HR PRN IV Severe labor pain; Start at 13:15 Fentanyl Citrate (Fentanyl 2ml Vial) 100 mcg PRN Q30MIN PRN IV Severe pain Last administered on 09/09/18at 15:28; Start 09/09/18 at 13:15 Terbutaline Sulfate (Brethine) 0.25 mg 1X PRN PRN SQ SEE COMMENTS; Start 09/09 at 13:15; Stop 09/10/18 at 13:14; Status DC Lidocaine HCl (Xylocaine 1% Pf 30ml Vial) 30 ml 1X PRN PRN INJ SEE COMMENTS Last administered on 09/09/18at 16:29; Start 09/09/18 at 13:15; Stop 09/11/18 at 13:14 Oxytocin/Sodium Chloride 500 ml @ 0 mls/hr CONT PRN IV SEE I/O RECORD; Start 09/09/18 at 13:15 Oxytocin/Sodium Chloride 500 ml @ 0 mls/hr CONT PRN PRN IV Post delivery bleeding Last administered on 09/09/18at 16:30; Start 09/09/18 at 13:15 Ibuprofen (Motrin) 800 mg PRN Q6HRS PRN PO PAIN Last administered on at 08:04; Start 09/09/18 at 13:15 Sodium Chloride (Normal Saline Flush) 10 ml QSHIFT PRN IV AFTER MEDS AND BLOOD DRAWS; Start 09/09/18 at 16:30 Oxytocin/Sodium Chloride 500 ml @ 62.5 mls/hr CONT PRN IV SEE I/O RECORD; Start 09/09/18 at 16:30; Stop 09/10/18 at 00:29; Status DC Acetaminophen (Tylenol) 650 mg PRN Q6HRS PRN PO MILD PAIN / TEMP; Start at 16:30 Ibuprofen (Motrin) 800 mg PRN Q8HRS PRN PO INFLAMMATION/PAIN PREVENTION; Start 09/09/18 at 16:30; Status UNV Docusate Sodium (Colace) 100 mg PRN BID PRN PO CONSTIPATION 1ST CHOICE Last administered on 09/10/18at 08:03; Start 09/09/18 at 16:30 Magnesium Hydroxide (Milk Of Magnesia) 2,400 mg PRN DAILY PRN PO CONSTIPATION 2ND CHOICE; Start 09/09/18 at 16:30 Al Hydroxide/Mg Hydroxide (Mylanta Plus Xs) 30 ml PRN Q4HRS PRN PO HEARTBURN / GAS; Start 09/09/18 at 16:30 Simethicone (Gas-X) 80 mg PRN AFTMEALHC PRN PO GAS / BLOATING; Start 09/09/18 at 16:30 Diphenhydramine HCl (Benadryl) 25 mg PRN Q6HRS PRN PO ITCHING; Start 09/09/18 at 16:30 Benzocaine (Americaine) 1 spray PRN QID PRN TP TOPICAL PAIN Last administered on 09/09/18at 18:18; Start 09/09/18 at 16:30 Phenyleph/Shark Oil/Min Oil/Petrol (Preparation H) 1 sara PRN QID PRN RC RECTAL PAIN; Start 09/09/18 at 16:30 Hydrocortisone (Cortaid) 1 sara PRN QID PRN TP PERINEAL PAIN; Start 09/09/18 at 16:30 Ferrous Sulfate (Feosol) 325 mg BIDWMEALS PO ; Start 09/10/18 at 08:00; Stop 09/10/18 at 08:00; Status DC Zolpidem Tartrate (Ambien) 5 mg PRN QHS PRN PO INSOMNIA, MAY REPEAT X1; Start 09/09/18 at 16:30 Info (Do NOT chart on this placeholder) 1 ea 1X PRN PRN MC SEE COMMENTS; Start 09/09/18 at 16:30; Status Cancel Info (Do NOT chart on this placeholder) 1 ea 1X PRN PRN MC SEE COMMENTS; Start 09/09/18 at 16:30 Oxycodone/ Acetaminophen (Percocet 5/325) 2 tab PRN Q4HRS PRN PO MODERATE PAIN , SEVERE PAIN; Start 09/09/18 at 16:30 Influenza Virus Vaccine (Afluria Trivalent [id number] Syringe) 0.5 ml ONCE ONCE VAX IM ; Start 09/10/18 at 09:00; Stop 09/10/18 at 09:01; Status DC Diphtheria/ Tetanus/Acell Pertussis (Boostrix) 0.5 ml ONCE ONCE VAX IM ; Start 09/10/18 at 09:00; Stop 09/10/18 at 09:01; Status DC Info (FLU VACCINE SCREEN per RX) 1 each PRN 1X PRN MC SEE COMMENTS; Start at 23:45; Status Cancel Exam Abd: soft, nontender, fundus firm Assessment PPD#1 s/p Plan of Care: Continue current Tx, Mgmt VANESSA COOPER Jr, MD Sep 10, 2018 15:46
[2018-09-10 17:23] VITALS: BP 111/64
[2018-09-10 21:30] VITALS: BP 128/67
[2018-09-11 04:00] VITALS: BP 118/62
--- NOTE | 2018-09-11 08:17 | PDOC3 ---
OB DISCHARGE SUMMARY DATE OF ADMISSION: 09/09/18 DATE OF DISCHARGE: 09/11/18 REASON FOR ADMISSION: Onset of labor PROCEDURES: Ultrasound INTRAPARTUM PROCEDURES: Spontanous Vag Deliv, Perineal Laceration PROCEDURES: None OPERATIONS: None DISCHARGE INFORMATION: Activity, Diet HOSPITAL COURSE uremarkable CONDITION AT DISCHARGE Stable KARSON MCDONNELL MD Sep 11, 2018 08:17
[2018-09-11] MEDS ORDERED: HYDR-971 PO (08:19)
[2018-09-11] MEDS ORDERED: NAPR-514 PO (08:19)
[2018-09-11 15:49] VITALS: BP 124/78
[2018-09-21] MEDS ORDERED: ASPI-630 PO (13:16)
[2018-09-28] MEDS ORDERED: HYDR-971 PO (15:26)
[2018-09-28] MEDS ORDERED: DOCU-109 PO (15:27)
== END 2018-09-11 18:50 | disposition home or self-care (01) | DRG 807 ==
LOC: 3 SO LND 10:37 → OBSVTOIN 13:16 → 3 NORTH 20:02
PROVIDERS: ADMIT Specialist; ATTEND Specialist
PROC: 10E0XZZ Delivery of Products of Conception, External Approach (ICD-10-PCS; principal; 2018-09-09)
PROC: 0HQ9XZZ Repair Perineum Skin, External Approach (ICD-10-PCS; 2018-09-09)
DX: O69.81X0 Labor and delivery complicated by cord around neck, without compression, not applicable or unspecified (principal); Z37.0 Single live birth; O70.0 First degree perineal laceration during delivery; Z3A.38 38 weeks gestation of pregnancy
CPT/HCPCS: 36415; 85025; 86592; 86850; 86900; 86901; 90471; 90715; 90756; G0378; G0379; J2590; J3010; J7120; Q2035

== ENCOUNTER → 2018-09-21 | Day surgery (SDC) | payer OTHER ==
[~2018-09-21] VITALS: Ht 154.9 cm; Wt 81.6 kg
[~2018-09-21] MED LIST: ASPI-630 PO; BISACODYL 10 MG SUPP.RECT. ONE; BUPIVACAINE-EPI 0.5%-1:200000 50 ML VIAL. ONE; DEXAMETHASONE SOD PHOS 20 MG/5 ML VIAL. ONE; DOCU-109 PO; HEPARIN 1,000 UNIT in IV NORMAL SALINE 1,000 ML for SURG PERIOP IRR ONE; HYDR-971 PO; HYDROmorphone 2 MG/ML VIAL IV PRN; IBUPROFEN 200 MG TABLET. PO ONE; IOHEXOL 300 MG/ML 100ML VIAL. ONE; IV RINGERS,LACTATED 1000ML 1,000 ML IV SCH; LIDOCAINE 1% PF 2 ML VIAL. ID PRN; LIDOCAINE 2% PF Vial for OR 5 ML VIAL. ONE; MORPHINE SULFATE 2 MG/ML VIAL. IV PRN; NAPR-514 PO; ONDANSETRON PF 4 MG/2 ML VIAL. IV PRN; PROCHLORPERAZINE 10 MG/2 ML VIAL. IV PRN; PROPOFOL 0 ML IV ONE; ROCURONIUM 50 MG/5 ML VIAL. ONE; SURGICEL HEMOSTAT 2X3 EACH. ONE; fentaNYL PF VIAL 100 MCG/2 ML VIAL IV PRN; fentaNYL PF VIAL 100 MCG/2 ML VIAL ONE
[2018-09-21 11:12] LABS: U PREG PATIENT POSITIVE (NEG)
--- NOTE | 2018-09-21 12:10 | PDOC ---
SURGICAL PROGRESS NOTE Subjective 38 yo F with hx of gallstone pancreatitis. Scheduled for laparoscopic cholecystectomy with cholangiogram today. Denies abd pain, but noted pain in her right posterior calf and thigh with palpable varicose vein. She has noted this since and it has gotten smaller. However, favor cancelling surgery and obtaining BLE duplex to evaluate for DVT considering elective surgery. Vital Signs Vital Signs Date Time Temp Pulse Resp B/P (MAP) Pulse Ox O2 Delivery O2 Flow Rate FiO2 09/21/18 11:18 98.8 90 18 136/71 98 Room Air 98.8 Labs Laboratory Tests Test 09/21/18 10:50 09/21/18 11:20 Urine Test Positive (NEG) Maternal Serum HCG Beta Subunit 19 mIU/mL (0-5) Laboratory Tests Test 09/21/18 10:50 09/21/18 11:20 Urine Test Positive (NEG) Maternal Serum HCG Beta Subunit 19 mIU/mL (0-5) CHARLES JOHNSON MD Sep 21, 2018 12:10
--- NOTE | 2018-09-21 13:56 | RAD ---
Bilateral lower extremity venous duplex study 09/21/2018 12:07 PM Clinical History: Right-sided, medial thigh pain Comparison: None Technique: Using a combination of real time ultrasound imaging and color-flow and pulse Doppler imaging techniques along with graded compression and augmentation, duplex evaluation of the deep venous system of the both lower extremities was performed. Multiple images were obtained. Findings: There is no sonographic evidence of deep venous thrombosis involving the visualized deep venous structures of either lower extremity. Thrombosed superficial varicosities are noted in the posterior/medial right thigh. Impression: 1.No evidence of deep venous thrombosis involving either lower extremity 2. Thrombosed superficial varicosities in the proximal right thigh Electronically signed by: Brad Muir MD (09/21/2018 1:54 PM) [id number]
== END | disposition home or self-care (01) ==
LOC: SURG 10:27
PROVIDERS: ATTEND Surgery
DX: K80.20 Calculus of gallbladder without cholecystitis without obstruction (principal); Z53.8 Procedure and treatment not carried out for other reasons; K85.90 Acute pancreatitis without necrosis or infection, unspecified; I83.811 Varicose veins of right lower extremity with pain; Z79.899 Other long term (current) drug therapy
CPT/HCPCS: 36415; 81025; 84702; 93970; Q9967; J0690; J1100; J1644; J2001; J2704; J3010; J7030

== ENCOUNTER → 2018-09-28 | Day surgery (SDC) | payer OTHER ==
[~2018-09-28] VITALS: Ht 154.9 cm; Wt 81.6 kg
[~2018-09-28] MED LIST changes: +BUPIVAC MPF-EPI 0.5%-1:200000 30 ML VIAL. ONE; -BUPIVACAINE-EPI 0.5%-1:200000 50 ML VIAL. ONE; +GLYCOPYRROLATE 1 MG/5 ML VIAL. ONE; +HYDROcodone/APAP 5/325MG 1 TAB TABLET PO ONE; +LIDOCAINE 1% PF 5 ML VIAL. ONE; -LIDOCAINE 2% PF Vial for OR 5 ML VIAL. ONE; +MIDAZOLAM HCL/PF 2 MG/2 ML VIAL. ONE; +NEOSTIGMINE METHYLSULFATE 5 MG/5 ML SYRINGE. ONE; +ONDANSETRON PF 4 MG/2 ML VIAL. ONE; +PROCHLORPERAZINE 10 MG/2 ML VIAL. ONE; -PROPOFOL 0 ML IV ONE; +PROPOFOL 20 ML IV ONE; +SEVOFLURANE 61 TO 120 MINUTES. IH ONE; +fentaNYL PF VIAL 250 MCG/5 ML VIAL ONE
[2018-09-28 12:52] LABS: U PREG PATIENT NEGATIVE (NEG)
--- NOTE | 2018-09-28 13:50 | PDOC ---
SURGICAL PROGRESS NOTE Subjective 38 yo F with hx of gallstone pancreatitis. Necessary to proceed with laparoscopic cholecystectomy with cholangiogram to prevent recurrence. R/R/B/A/d/w pt and pt's supportive family. Risks, including, but not limited to : bleeding, infection, damage to surrounding structures, risk of anesthesia, risk of open. They appear to understand, their questions are answered and they agree to proceed. Office note H&P reviewed and unchanged. Varicose vein improved and US neg for DVT. Vital Signs Vital Signs Date Time Temp Pulse Resp B/P (MAP) Pulse Ox O2 Delivery O2 Flow Rate FiO2 09/28/18 11:34 97.7 74 16 116/65 97 Room Air 97.7 Labs Laboratory Tests Test 09/28/18 10:45 Urine Test Negative (NEG) Laboratory Tests Test 09/28/18 10:45 Urine Test Negative (NEG) CHARLES JOHNSON MD Sep 28, 2018 13:50
--- NOTE | 2018-09-28 14:43 | RAD ---
Intraoperative cholangiogram, 09/28/2018: HISTORY: Cholecystectomy 3 spot films from surgery are presented for review. Contrast has been injected into the cystic duct remnant. 0.21 minutes of fluoroscopy time was utilized. There is good flow of contrast into the duodenum at the ampulla. No filling defect is seen in the common duct to suggest a retained calculus. The incompletely opacified intrahepatic ducts are unremarkable. No contrast extravasation is seen. IMPRESSION: No significant abnormality is detected. Electronically signed by: Mike Brock MD (09/28/2018 2:40 PM) [facility]
--- NOTE | 2018-09-28 15:11 | PDOC4 ---
OPERATIVE NOTE Date: Date: Sep 28, 2018 Pre-Op Diagnosis: Gallstone pancreatitis Post-Op Diagnosis: same Procedure Performed: Laparoscopic cholecystectomy with cholangiogram Surgeon: Art Johnson Anesthesia Type: GETA plus local Blood Loss: 50 Specimans Obtained: gallbladder Findings: Grossly normal gallbladder, normal cholangiogram Complications: none Operative Note: After obtaining informed consent, patient was taken to OR, induced under GETA and prepped in the usual fashion. 5 mm ports placed umbilical and RUQ, 12 port placed epigastric, all under laparoscopic guidance. Abdominal cavity was explored and otherwise unremarkable. Gallbladder was somewhat edematous, but otherwise unremarkable. Gallbladder grasped. Critical view dissected out. Anterior and posterior cystic artery ligated with clips. Cholangiogram obtained via cystic duct which was normal. Cystic duct ligated with hemolok and clips. Gallbladder taken off fossa using cautery, placed in bag, delivered and sent to pathology for evaluation. Copious irrigation. No evidence of bleeding or other pathology. Ports removed without bleeding. Fascia repaired with 0 vicryl. Skin repaired with 4 0 monocryl. Dressing applied. Patient tolerated procedure well and sent to PACU in stable condition. All counts correct. No immediate complications. CHARLES JOHNSON MD Sep 28, 2018 15:10
[2018-09-28] MEDS: fentaNYL PF VIAL 100 MCG/2 ML VIAL IV PRN ×2 (15:39→15:50)
[2018-09-28 16:56] VITALS: BP 122/66
--- NOTE | 2018-09-30 15:08 | PATHOLOGY ---
[facility] Accession Number: [id number] . 01 Material submitted: . GALLBLADDER AND CONTENTS . 01 Clinical history: . Gallstones, pancreatitis . 02 Diagnosis: Gallbladder, laparoscopic cholecystectomy: - Cholelithiasis. - Chronic cholecystitis. LBQ/09/30/2018 . 02 Comment: There is no evidence of malignancy. (JPM/db; 09/30/2018) . 02 Electronically signed: . Jaylen Mejia MD, Pathologist NPI- [id number] . 01 Gross description: . The specimen is received in formalin, labeled "Andi, Jud, gallbladder and contents" and consists of an intact, pink-greene, and smooth gallbladder measuring 7.5 cm in length and up to 2.3 cm in diameter. Opening reveals a lumen packed with multiple gonzalez brown and multifaceted calculi which measure 5.0 x 4.3 x 0.6 cm in aggregate. The mucosa is viveros-brown, granular, and eroded. No masses are identified. The wall ranges from 0.1-0.2 cm thick. Squirrel Worker sections are submitted in A1. (SDY; 09/29/2018) SYU/SYU . 02 Pathologist provided ICD-10: K80.10 . 02 CPT . 253966 Specimen Comment: A courtesy copy of this report has been sent to Specimen Comment: [phone]. Specimen Comment: Report sent to Performed at: 01 [facility] [address] [facility] [address], [place] [id number] MD King Burgos MD Phone: [phone] Performed at: 02 [facility] [address], [place] [id number] MD Jaylen Mejia MD Phone: [phone]
== END | disposition home or self-care (01) ==
LOC: SURG 10:38
PROVIDERS: ATTEND Surgery
DX: K85.10 Biliary acute pancreatitis without necrosis or infection (principal); E66.9 Obesity, unspecified; Z79.899 Other long term (current) drug therapy; Z98.890 Other specified postprocedural states; Z79.82 Long term (current) use of aspirin
CPT/HCPCS: 47563; 74300; 81025; A7015; J0690; J0780; J1100; J1644; J2250; J2405; J2704; J2710; J3010; J3490; J7030; J7120; Q9967; 88304